=== PATIENT | female | born 1965 | race Asian ===

== ENCOUNTER 2019-01-29 00:52 | Emergency (ER) | payer MEDICAID ==
[~2019-01-29] VITALS: Ht 165.1 cm; Wt 61.2 kg
[2019-01-29 01:10] VITALS: BP_SYST 150
[2019-01-29] MEDS ORDERED: DIPH-TET-PERTUS Vaccine 0.5 ML VIAL (ADACEL) IM ONE (01:30)
[2019-01-29 02:42] VITALS: BP_SYST 128
== END 2019-01-29 02:42 | disposition home or self-care (01) ==
LOC: SED 00:52
DX: S61.311A Laceration without foreign body of left index finger with damage to nail, initial encounter (principal); E78.00 Pure hypercholesterolemia, unspecified; I10 Essential (primary) hypertension; W26.8XXA Contact with other sharp object(s), not elsewhere classified, initial encounter; Y93.89 Activity, other specified; Y92.89 Other specified places as the place of occurrence of the external cause; Y99.8 Other external cause status
CPT/HCPCS: 90715; 99283

== ENCOUNTER 2021-03-06 21:47 | Emergency (ER) | payer MEDICAID ==
[~2021-03-06] VITALS: Ht 165.1 cm; Wt 60.3 kg
[2021-03-06 21:47] VITALS: BP_SYST 138
[2021-03-06] MEDS ORDERED: KETOROLAC TROMETHAMINE 60 MG/2 ML VIAL IM ONE (22:00)
[2021-03-06] MEDS ORDERED: ONDANSETRON 4 MG ODT TAB PO ONE (22:00)
[2021-03-06 22:32] LABS: BASOPHILS % (AUTO) 0.8 % (0.0-2.0); EOSINOPHILS % (AUTO) 0.8 % (0.0-4.0); HEMATOCRIT 39.2 % (36-48); HEMOGLOBIN 13.1 g/dL (12.0-16.0); LYMPHOCYTES # (AUTO) 2.1 K/uL (1.0-5.5); MEAN CORPUSCULAR HEMOGLOBIN 29 pg (27-31); MEAN CORPUSCULAR HGB CONC 33 % (32-36); MEAN CORPUSCULAR VOLUME 88 fL (79.0-98.0); MONOCYTES # (AUTO) 0.3 K/uL (0.0-1.0); NEUTROPHILS # (AUTO) 3.2 K/uL (1.8-7.7); NEUTROPHILS % (AUTO) 56.4 % (40.0-70.0); PLATELET COUNT (AUTO) 229 K/uL (130-430); RED BLOOD CELL COUNT(AUTO) 4.48 MIL/uL (4.2-6.2); RED CELL DISTRIBUTION WIDTH 12.6 % (9.0-15.0); WHITE BLOOD COUNT (AUTO) 5.6 K/uL (4.8-10.8)
[2021-03-06 22:43] LABS: BILIRUBIN,URINE NEGATIVE (NEGATIVE); BLOOD, URINE NEGATIVE (NEGATIVE); CLARITY/URINE CLEAR (CLEAR); COLOR,URINE YELLOW (YELLOW); GLUCOSE,URINE NEGATIVE (NEGATIVE); KETONES,URINE NEGATIVE (NEGATIVE); LEUKOCYTE ESTERASE ,URINE 2+ (NEGATIVE); NITRITE, URINE NEGATIVE (NEGATIVE); PROTEIN URINE NEGATIVE (NEGATIVE); UROBILINOGEN,URINE 0.2 (0.2-1.0)
[2021-03-06 22:45] LABS: CALCIUM 8.8 mg/dL (8.4-11.0); CREATININE 0.81 mg/dL (0.55-1.30); POTASSIUM 3.4 mmol/L (3.5-5.1)
[2021-03-06 22:48] LABS: RBC,URINE 0-3 /HPF (0-3)
[2021-03-06 22:49] LABS: BACTERIA,URINE FEW /HPF (None Seen)
[2021-03-06 23:00] LABS: ALBUMIN 3.8 g/dL (3.4-4.8); TOTAL BILIRUBIN 0.4 mg/dL (0.0-1.0)
[2021-03-06] MEDS ORDERED: MORPHINE 2 MG/ML INJ. SYRINGE IVP ONE (23:00)
[2021-03-07] MEDS ORDERED: IOHEXOL 350 mgI/mL, 150 ML INFUS..BTL IV ONE (00:14)
[2021-03-07] MEDS ORDERED: PANTOPRAZOLE SODIUM 40 MG/VIAL (PROTONIX) IVP ONE (00:30)
[2021-03-07] MEDS ORDERED: LABETALOL 100 MG/ 20ML VIAL IVP ONE (01:15)
[2021-03-07] MEDS: LABETALOL HCL 250 MG in NS 200 ML IV ONE ×2 (01:54→04:10)
[2021-03-07] MEDS ORDERED: LABETALOL 100 MG/ 20ML VIAL ONE (03:12)
[2021-03-07 06:20] VITALS: BP_SYST 116
[2021-03-07 07:31] LABS: BARBITURATE, URINE NEGATIVE (NEG <=200); BENZODIAZEPINE, URINE NEGATIVE (NEG <=150); CANNABINOID, URINE NEGATIVE (NEG <=50); COCAINE, URINE NEGATIVE (NEG <=150); METHAMPHETAMINES SCREEN,URINE NEGATIVE (NEG <=500); OPIATE, URINE NEGATIVE (NEG <=100); PHENCYCLIDINE SCREEN,URINE NEGATIVE (NEG <=25); UR TRICYCLIC ANTIDEPRESSANTS NEGATIVE (NEG <=300); URINE AMPHETAMINE NEGATIVE (NEG <=500); URINE METHADONE NEGATIVE (NEG <=200); URINE OXYCODONE SCREEN NEGATIVE (NEG <=100); URINE PROPOXYPHENE SCREEN NEGATIVE (NEG <=300)
== END 2021-03-07 06:20 | disposition short-term general hospital (02) ==
LOC: SED 21:47
DX: I71.01 Dissection of thoracic aorta (principal); N39.0 Urinary tract infection, site not specified; I10 Essential (primary) hypertension; E78.00 Pure hypercholesterolemia, unspecified; Z20.822 Contact with and (suspected) exposure to COVID-19
CPT/HCPCS: 36415; 71275; 76376; 76700; 80053; 80307; 81000; 81025; 82150; 82962; 83605; 83690; 84484; 84703; 85025; 86886; 86900; 86901; 87086; 87426; 96365; 96372; 96375 ×2; 99285; C9113; J1885; J2270; J3490; Q0162; Q9967

== ENCOUNTER 2024-02-04 17:07 | Emergency (ER) | payer MEDICAID ==
[~2024-02-04] VITALS: Ht 162.6 cm; Wt 59.0 kg
[2024-02-04 17:23] VITALS: BP_SYST 138; PULSE 70; RESP 16; TEMP 98.2; O2SAT 99
[2024-02-04] MEDS ORDERED: ONDA-8 TL (19:18)
[2024-02-04] MEDS ORDERED: IBUP-1969 PO (19:18)
[2024-02-04] MEDS: ACETAMINOPHEN 500 MG TABLET PO ONE (19:26)
[2024-02-04 19:29] VITALS: BP_SYST 134; PULSE 73; RESP 20; TEMP 97.9; O2SAT 96
== END 2024-02-04 19:28 | disposition home or self-care (01) ==
LOC: SED 17:07
DX: S16.1XXA Strain of muscle, fascia and tendon at neck level, initial encounter (principal); F07.81 Postconcussional syndrome; I10 Essential (primary) hypertension; Z79.899 Other long term (current) drug therapy; V89.2XXA Person injured in unspecified motor-vehicle accident, traffic, initial encounter; Y93.89 Activity, other specified; Y92.89 Other specified places as the place of occurrence of the external cause; Y99.8 Other external cause status
CPT/HCPCS: 70450-TC; 72040; 72072; 99284